=== PATIENT | female | born 1940 | race Caucasian/White ===

== ENCOUNTER → 2017-07-21 | Outpatient (CLI) | END | disposition home or self-care (01) ==

== ENCOUNTER → 2017-12-07 | Outpatient (CLI) | payer MEDICARE ==
[~2017-12-07] MED LIST: ASPI81EC PO; ATOR10; ESTR1; EZET10 PO; ISOMON30 PO; NAPR500 PO; PRED5 PO; [UNRECOGNIZED DRUG - REMARK]
== END | disposition home or self-care (01) ==
LOC: LAB SHORT 16:31 → LAB EV 16:31
DX: N39.0 Urinary tract infection, site not specified (principal)
CPT/HCPCS: 87086

== ENCOUNTER → 2018-04-14 | Outpatient (CLI) | payer MEDICARE ==
[~2018-04-14] MED LIST changes: +ATEN25 PO; +ESTR2 PO; +Omeprazole20 M1; +SPIR25 PO
[2018-04-14 16:19] LABS: BASOPHILS ABSOLUTE AUTO 0.04 K/mm3 (0.00-0.23); BASOPHILS PERCENT AUTO 1 % (0-2); EOSINOPHILS ABSOLUTE AUTO 0.22 K/mm3 (0.00-0.68); EOSINOPHILS PERCENT AUTO 3 % (0-6); Hematocrit 42.1 % (33.0-51.0); Hemoglobin 14.5 g/dL (11.5-16.0); IMMATURE GRAN ABSOLUTE AUTO 0.01 K/mm3 (0.00-0.10); IMMATURE GRAN PERCENT AUTO 0 % (0-1); LYMPHOCYTES ABSOLUTE AUTO 2.88 K/mm3 (0.84-5.20); LYMPHOCYTES PERCENT AUTO 36 % (21-46); MONOCYTES ABSOLUTE AUTO 0.57 K/mm3 (0.16-1.47); MONOCYTES PERCENT AUTO 7 % (4-13); Mean Corpuscular HGB 29.6 pg (26.0-34.0); Mean Corpuscular HGB Conc 34.4 g/dL (31.5-36.5); Mean Corpuscular Volume 86 fL (80-100); Mean Platelet Volume 11.4 fL (9.1-12.4); NEUTROPHILS ABSOLUTE AUTO 4.29 K/mm3 (1.96-9.15); NEUTROPHILS PERCENT AUTO 54 % (41-73); Platelet Count 195 K/mm3 (150-400); RDW Coefficient Variation 14.4 % (11.7-14.2); RDW Standard Deviation 45.2 fL (35.1-46.3); White Blood Cell Count 8.01 K/mm3 (4.00-11.30)
[2018-04-14 16:37] LABS: Alanine Aminotransfer (ALT/SGP 34 U/L (12-78); Albumin, Blood 3.9 g/dL (3.4-5.0); Albumin/Globulin Ratio 1.1 (0.8-1.8); Alk Phos 121 U/L (40-126); Anion Gap 10 mmol/L (6-16); Aspartate Aminotrans (AST/SGOT 26 U/L (12-37); Bilirubin, Total 0.5 mg/dL (0.1-1.0); Blood Urea Nitrogen 15 mg/dL (8-24); Bun/Creatinine Ratio 15.2 (12.0-20.0); CO2, Blood 26 mmol/L (21-32); Calcium, Blood 9.1 mg/dL (8.5-10.1); Chloride, Blood 105 mmol/L (98-108); Creatinine, Blood 0.99 mg/dL (0.40-1.00); Globulin, Blood 3.5 g/dL (2.2-4.0); Glomerular Filtration Rate 55 (60-); Glucose, Blood 76 mg/dL (70-99); Potassium, Blood 3.6 mmol/L (3.5-5.5); Sodium, Blood 141 mmol/L (136-145); Total Protein, Blood 7.4 g/dL (6.4-8.2)
[2018-04-14 16:39] LABS: Troponin I <0.017 ng/mL (0.000-0.040)
== END | disposition home or self-care (01) ==
LOC: LAB EV 16:13 → LAB SHORT 16:13
PROVIDERS: Physician Assistant
DX: R07.9 Chest pain, unspecified (principal)
CPT/HCPCS: 80053; 84484; 85025; 85379

== ENCOUNTER → 2018-08-03 | Outpatient (CLI) | payer MEDICARE | END | disposition home or self-care (01) | LOC: LAB SHORT 14:04 → PLD 14:04 | DX: D22.5 Melanocytic nevi of trunk (principal) | CPT/HCPCS: 88305 ==

== ENCOUNTER → 2018-09-04 | Outpatient (CLI) | payer OTHER | END | disposition home or self-care (01) | LOC: LAB EV 12:20 → LAB SHORT 12:20 | DX: N39.0 Urinary tract infection, site not specified (principal) | CPT/HCPCS: 87086 ==

== ENCOUNTER → 2018-09-16 | Outpatient (CLI) | payer OTHER ==
[2018-09-16 18:54] LABS: Source, Urine Clean Catch
[2018-09-16 19:54] LABS: Bacteria Rare /hpf; Red Blood Cells, Urine 25-50 /hpf (0-2); Squamous Epithelial Cells Rare /hpf (Few)
== END | disposition home or self-care (01) ==
LOC: LAB EV 15:35 → LAB SHORT 15:35
PROVIDERS: Physician Assistant
DX: R30.0 Dysuria (principal); R31.9 Hematuria, unspecified
CPT/HCPCS: 81015

== ENCOUNTER → 2019-02-15 | Outpatient (CLI) | payer MEDICARE ==
[2019-02-15 12:22] LABS: Appearance, Urine Hazy (Clear); Bilirubin, Urine Neg (Neg); Blood, Urine Neg (Neg); Color, Urine Yellow (P-Yellow); Glucose Qualitative, Urine Neg (Normal); Ketones, Urine Neg (Neg); Leukocyte Esterase, Urine Neg (Neg); Nitrite, Urine Neg (Neg); Protein, Urine Neg (Neg); Urobilinogen, Urine NORM (Normal)
[2019-02-15 12:23] LABS: Bacteria Few /hpf; Red Blood Cells, Urine 0-2 /hpf (0-2); Squamous Epithelial Cells Many /hpf (Few); White Blood Cells, Urine 0-2 /hpf (0-5)
[2019-02-15 17:46] LABS: Adenovirus F 40/41 Not Detected (NOT DETECT); Astrovirus Not Detected (NOT DETECT); Campylobacter Sp Not Detected (NOT DETECT); Cryptosporidium Not Detected (NOT DETECT); Cyclospora Cayetanensis Not Detected (NOT DETECT); E. Coli O157 Not Detected (NOT DETECT); Entamoeba Histolytica Not Detected (NOT DETECT); Enteroaggregative E. coli-EAEC Not Detected (NOT DETECT); Enteropathogenic E. coli-EPEC Not Detected (NOT DETECT); Enterotoxigenic E. coli-ETEC Not Detected (NOT DETECT); Giardia Lamblia Not Detected (NOT DETECT); Norovirus GI/GII Not Detected (NOT DETECT); Plesiomonas Shigelloides Not Detected (NOT DETECT); Rotavirus A Not Detected (NOT DETECT); Salmonella Sp Not Detected (NOT DETECT); Sapovirus Not Detected (NOT DETECT); Shiga Toxin-prod E. coli-STEC Not Detected (NOT DETECT); Shigella/Enteroin E. coli-EIEC Not Detected (NOT DETECT); Vibrio Cholerae Not Detected (NOT DETECT); Vibrio Sp Not Detected (NOT DETECT); Yersinia Enterocolitica Not Detected (NOT DETECT)
== END ==
LOC: LAB EV 11:27
PROVIDERS: Physician Assistant
DX: R19.5 Other fecal abnormalities (principal); R10.31 Right lower quadrant pain
CPT/HCPCS: 0097U; 81001

== ENCOUNTER 2019-07-19 10:50 | Inpatient (IN) | payer MEDICARE ==
[~2019-07-19] VITALS: Ht 167.6 cm; Wt 81.9 kg
[~2019-07-19 10:50] MED LIST changes: -ASPI81EC PO; +Aspirin EC81 MG PO; -Omeprazole20 M1; +Omeprazole20 M1 PO
[2019-07-19 11:59] LABS: BASOPHILS ABSOLUTE AUTO 0.05 K/mm3 (0.00-0.23); BASOPHILS PERCENT AUTO 1 % (0-2); EOSINOPHILS ABSOLUTE AUTO 0.23 K/mm3 (0.00-0.68); EOSINOPHILS PERCENT AUTO 2 % (0-6); Hematocrit 40.8 % (33.0-51.0); Hemoglobin 13.7 g/dL (11.5-16.0); IMMATURE GRAN ABSOLUTE AUTO 0.02 K/mm3 (0.00-0.10); IMMATURE GRAN PERCENT AUTO 0 % (0-1); LYMPHOCYTES ABSOLUTE AUTO 3.12 K/mm3 (0.84-5.20); LYMPHOCYTES PERCENT AUTO 30 % (21-46); MONOCYTES ABSOLUTE AUTO 0.54 K/mm3 (0.16-1.47); MONOCYTES PERCENT AUTO 5 % (4-13); Mean Corpuscular HGB 29.7 pg (26.0-34.0); Mean Corpuscular HGB Conc 33.6 g/dL (31.5-36.5); Mean Corpuscular Volume 89 fL (80-100); Mean Platelet Volume 10.5 fL (9.1-12.4); NEUTROPHILS ABSOLUTE AUTO 6.44 K/mm3 (1.96-9.15); NEUTROPHILS PERCENT AUTO 62 % (41-73); Platelet Count 220 K/mm3 (150-400); RDW Coefficient Variation 13.8 % (11.7-14.2); RDW Standard Deviation 44.4 fL (35.1-46.3); Red Blood Cell Count 4.61 M/mm3 (3.80-5.20)
[2019-07-19 12:13] LABS: Anion Gap 9 mmol/L (6-16); Blood Urea Nitrogen 13 mg/dL (8-24); Bun/Creatinine Ratio 14.8 (12.0-20.0); CO2, Blood 21 mmol/L (21-32); Calcium, Blood 8.6 mg/dL (8.5-10.1); Chloride, Blood 109 mmol/L (98-108); Creatinine, Blood 0.88 mg/dL (0.40-1.00); Glomerular Filtration Rate >60 (60-); Glucose, Blood 157 mg/dL (70-99); Potassium, Blood 3.3 mmol/L (3.5-5.5); Sodium, Blood 139 mmol/L (136-145)
[2019-07-19] MEDS ORDERED: ESTRADIOL10 MCG VAG (13:38)
[2019-07-19] MEDS ORDERED: Vitamin D2000 UNIT PO (13:43)
[2019-07-19] MEDS ORDERED: LOSA25 PO (13:43)
[2019-07-19] MEDS ORDERED: EZET10 PO (13:48)
[2019-07-19] MEDS ORDERED: Ranitidine HCl150 M1 PO (16:15)
[2019-07-19] MEDS ORDERED: ASCO500 PO (16:16)
[2019-07-19] MEDS ORDERED: OYSTER SHELL 51 EACH PO (16:17)
[2019-07-20 05:40] LABS: BASOPHILS ABSOLUTE AUTO 0.03 K/mm3 (0.00-0.23); BASOPHILS PERCENT AUTO 0 % (0-2); EOSINOPHILS ABSOLUTE AUTO 0.03 K/mm3 (0.00-0.68); EOSINOPHILS PERCENT AUTO 0 % (0-6); Hematocrit 37.1 % (33.0-51.0); Hemoglobin 12.3 g/dL (11.5-16.0); IMMATURE GRAN ABSOLUTE AUTO 0.03 K/mm3 (0.00-0.10); IMMATURE GRAN PERCENT AUTO 0 % (0-1); LYMPHOCYTES ABSOLUTE AUTO 2.01 K/mm3 (0.84-5.20); LYMPHOCYTES PERCENT AUTO 19 % (21-46); MONOCYTES PERCENT AUTO 8 % (4-13); Mean Corpuscular HGB 29.9 pg (26.0-34.0); Mean Corpuscular HGB Conc 33.2 g/dL (31.5-36.5); Mean Corpuscular Volume 90 fL (80-100); Mean Platelet Volume 11.5 fL (9.1-12.4); NEUTROPHILS ABSOLUTE AUTO 7.54 K/mm3 (1.96-9.15); NEUTROPHILS PERCENT AUTO 72 % (41-73); Platelet Count 180 K/mm3 (150-400); RDW Coefficient Variation 14.1 % (11.7-14.2); RDW Standard Deviation 46.4 fL (35.1-46.3); Red Blood Cell Count 4.11 M/mm3 (3.80-5.20); White Blood Cell Count 10.44 K/mm3 (4.00-11.30)
--- NOTE | 2019-07-20 05:57 | NUR ---
PATIENT'S PAIN IS LESS THIS AM. STATED BETTER CONTROL, EASIER TO GET OOB. RT ARM CON TO BE IN A SLING WITH EVA WRAPP OVER ENTIRE ARM. NO ACUTE CHANGES
[2019-07-20 06:04] LABS: Anion Gap 7 mmol/L (6-16); Blood Urea Nitrogen 16 mg/dL (8-24); Bun/Creatinine Ratio 18.4 (12.0-20.0); CO2, Blood 24 mmol/L (21-32); Calcium, Blood 8.6 mg/dL (8.5-10.1); Chloride, Blood 112 mmol/L (98-108); Creatinine, Blood 0.87 mg/dL (0.40-1.00); Glomerular Filtration Rate >60 (60-); Glucose, Blood 111 mg/dL (70-99); Potassium, Blood 4.2 mmol/L (3.5-5.5); Sodium, Blood 143 mmol/L (136-145)
--- NOTE | 2019-07-20 18:23 | NUR ---
PT ARRIVED BACK TO THE ROOM AT APPROXIMATELY 1740. PT IS ALERT AND ORIENTED. SHE REPORTS PAIN IS MANAGED. SHE IS DROWSY. ABLE TO TOLERATE CLEAR LIQUIDS. R ARM IN SLIN WITH SPLINT AND IMMOBILIZER IN PLACE. VSS. WILL MONITOR UNTIL REPORT TO ONCOMING RN.
--- NOTE | 2019-07-20 18:39 | NUR ---
SHIFT SUMMARY PAIN HAS BEEN MANAGED WITH IV PAIN MEDICATION THIS SHIFT. PT IS DOING WELL POST OP. NO SIGNIFICANT CHANGES TO REPORT.
--- NOTE | 2019-07-21 05:38 | NUR ---
SHIFT SUMMARY HAS RESTED WELL THIS SHIFT. PAIN MANAGED WITH PRM OXYCODONE X2 THIS SHIFT. INCREASED EDEMA NOTED TO ANIRUDH, SLING IN PLACE. PT CAN MOVE FINGERS, HAS FULL SENSATION, GOOD CAP REFILL NOTED, DENIES NUMBNESS OR TINGLING. AMBULATED TO BSC X4 TIMES THIS SHIFT TO URINATE, TOLERATED WELL. HAS NOT HAD A BM YET, BUT IS PASSING FLATUS. IVF CONTINUE TO INFUSE PER MD ORDERS. DENIES FURTHER NEEDS OR WANTS AT THIS TIME. SAFETY MEASURES IN PLACE. WILL GIVE HAND OFF TO ONCOMING SHIFT USING SBAR DURING BEDSIDE REPORT.
[2019-07-21 05:39] LABS: BASOPHILS ABSOLUTE AUTO 0.01 K/mm3 (0.00-0.23); BASOPHILS PERCENT AUTO 0 % (0-2); EOSINOPHILS PERCENT AUTO 0 % (0-6); Hematocrit 36.4 % (33.0-51.0); IMMATURE GRAN ABSOLUTE AUTO 0.04 K/mm3 (0.00-0.10); IMMATURE GRAN PERCENT AUTO 0 % (0-1); LYMPHOCYTES PERCENT AUTO 14 % (21-46); MONOCYTES ABSOLUTE AUTO 0.62 K/mm3 (0.16-1.47); MONOCYTES PERCENT AUTO 6 % (4-13); Mean Corpuscular HGB 29.6 pg (26.0-34.0); Mean Corpuscular Volume 90 fL (80-100); Mean Platelet Volume 10.9 fL (9.1-12.4); NEUTROPHILS ABSOLUTE AUTO 8.96 K/mm3 (1.96-9.15); NEUTROPHILS PERCENT AUTO 80 % (41-73); Platelet Count 176 K/mm3 (150-400); RDW Coefficient Variation 14.2 % (11.7-14.2); RDW Standard Deviation 46.9 fL (35.1-46.3); Red Blood Cell Count 4.05 M/mm3 (3.80-5.20); White Blood Cell Count 11.13 K/mm3 (4.00-11.30)
--- NOTE | 2019-07-21 14:49 | NUR ---
Pt is sitting up in a chair she reports doing fine encouraged her and offered prayers
[2019-07-21] MEDS ORDERED: HYDR1TAB94 PO (15:45)
[2019-07-21] MEDS ORDERED: ACET325 PO (15:45)
[2019-07-21] MEDS ORDERED: ONDA4ODT MM (15:46)
--- NOTE | 2019-07-21 16:05 | NUR ---
DISCHARGE SUMMARY PAIN MANAGED, PT PROVIDED WITH SCRIPT. WRITTEN AND VERBAL DISCHARGE INSTRUCTIONS PROVIDED BY FERNANDO CHANDLER. PT INSTRUCTED TO FOLLOW-UP ON THURSDAY WITH DR. CENTENO.
== END 2019-07-21 16:05 | disposition home or self-care (01) | DRG 563 ==
LOC: ER 10:50 → SURS 10:51
PROVIDERS: Emergency Medicine; Orthopaedic Surgery; Student in an Organized Health Care Education/Training Program; ADMIT Internal Medicine
PROC: 0PSFXZZ Reposition Right Humeral Shaft, External Approach (ICD-10-PCS; principal; 2019-07-20 14:45)
DX: S42.331A Displaced oblique fracture of shaft of humerus, right arm, initial encounter for closed fracture (principal); W19.XXXA Unspecified fall, initial encounter; I12.9 Hypertensive chronic kidney disease with stage 1 through stage 4 chronic kidney disease, or unspecified chronic kidney disease; N18.3 Chronic kidney disease, stage 3 (moderate); E87.6 Hypokalemia; E78.5 Hyperlipidemia, unspecified; M85.80 Other specified disorders of bone density and structure, unspecified site; Z88.5 Allergy status to narcotic agent; Z88.8 Allergy status to other drugs, medicaments and biological substances; Z79.82 Long term (current) use of aspirin
CPT/HCPCS: 24505; 36415; 70450; 72125; 73060; 73206; 80048; 85025; 93005; 93010; 96374-59; 96375-59; 97110; 97116; 97161; 97166; 97535; 99152; 99285-25; A9270-GY; J0330; J1100; J1650; J2250; J2370; J2405; J2704; J2710; J3010; J3480; J7030; J7120; Q9967

== ENCOUNTER → 2020-03-08 | Outpatient (CLI) | payer MEDICARE ==
[~2020-03-08] MED LIST changes: +ACET325 PO; +ASCO500 PO; +ESTRADIOL10 MCG VAG; +HYDR1TAB94 PO; +LOSA25 PO; +ONDA4ODT MM; +OYSTER SHELL 51 EACH PO; +Ranitidine HCl150 M1 PO; +Vitamin D2000 UNIT PO
== END | disposition home or self-care (01) ==
LOC: PLD 14:42 → LAB SHORT 14:42
DX: D09.21 Carcinoma in situ of right eye (principal)
CPT/HCPCS: 88305

== ENCOUNTER → 2021-02-04 | Outpatient (CLI) | payer MEDICARE | END | disposition home or self-care (01) | LOC: LAB SHORT 13:47 | DX: N39.0 Urinary tract infection, site not specified (principal) | CPT/HCPCS: 87077; 87086; 87186 ==

== ENCOUNTER → 2021-12-07 | Outpatient (CLI) | payer MEDICARE | END | disposition home or self-care (01) | LOC: LAB 10:30 → LAB SHORT 10:30 | DX: N39.0 Urinary tract infection, site not specified (principal) | CPT/HCPCS: 87077; 87086; 87186 ==

== ENCOUNTER → 2022-03-30 | Outpatient (CLI) | payer MEDICARE ==
[2022-03-30 12:01] LABS: BASOPHILS ABSOLUTE AUTO 0.03 K/mm3 (0.00-0.23); BASOPHILS PERCENT AUTO 1 % (0-2); EOSINOPHILS PERCENT AUTO 2 % (0-6); Hematocrit 38.3 % (33.0-51.0); Hemoglobin 13.3 g/dL (11.5-16.0); IMMATURE GRAN ABSOLUTE AUTO 0.02 K/mm3 (0.00-0.10); IMMATURE GRAN PERCENT AUTO 0 % (0-1); LYMPHOCYTES PERCENT AUTO 23 % (21-46); MONOCYTES ABSOLUTE AUTO 0.41 K/mm3 (0.16-1.47); MONOCYTES PERCENT AUTO 6 % (4-13); Mean Corpuscular HGB 30.9 pg (26.0-34.0); Mean Corpuscular HGB Conc 34.7 g/dL (31.5-36.5); Mean Corpuscular Volume 89 fL (80-100); Mean Platelet Volume 10.6 fL (9.1-12.4); NEUTROPHILS ABSOLUTE AUTO 4.42 K/mm3 (1.96-9.15); NEUTROPHILS PERCENT AUTO 68 % (41-73); Platelet Count 201 K/mm3 (150-400); RDW Coefficient Variation 13.6 % (11.7-14.2); White Blood Cell Count 6.48 K/mm3 (4.00-11.30)
[2022-03-30 12:23] LABS: Albumin, Blood 4.1 g/dL (3.4-5.0); Albumin/Globulin Ratio 1.3 (0.8-1.8); Bilirubin, Total 0.7 mg/dL (0.1-1.0); Bun/Creatinine Ratio 17.5 (12.0-20.0); Calcium, Blood 9.5 mg/dL (8.5-10.1); Creatinine, Blood 0.97 mg/dL (0.40-1.00); Globulin, Blood 3.2 g/dL (2.2-4.0); Potassium, Blood 4.1 mmol/L (3.5-5.5); Thyroid Stimulating Hormone 1.365 uIU/mL (0.360-4.800); Total Protein, Blood 7.3 g/dL (6.4-8.2)
== END | disposition home or self-care (01) ==
LOC: LAB SHORT 11:57 → LAB 11:57
PROVIDERS: Physician Assistant
DX: R07.9 Chest pain, unspecified (principal); R53.83 Other fatigue
CPT/HCPCS: 80053; 82150; 84443; 84484; 85025; 85379

== ENCOUNTER → 2022-04-11 | Outpatient (CLI) | payer MEDICARE | LOC: LAB SHORT 10:08 | DX: N39.0 Urinary tract infection, site not specified (principal) | CPT/HCPCS: 87077; 87086; 87186 ==

== ENCOUNTER → 2022-12-29 | Outpatient (CLI) | payer MEDICARE | END | disposition home or self-care (01) | LOC: LAB SHORT 18:11 → LAB 18:11 | DX: R60.9 Edema, unspecified (principal) | CPT/HCPCS: 85379 ==

== ENCOUNTER → 2024-03-09 | Outpatient (CLI) | payer MEDICARE ==
[2024-03-09 16:03] LABS: BASOPHILS ABSOLUTE AUTO 0.03 K/mm3 (0.00-0.23); BASOPHILS PERCENT AUTO 0 % (0-2); EOSINOPHILS ABSOLUTE AUTO 0.39 K/mm3 (0.00-0.68); EOSINOPHILS PERCENT AUTO 5 % (0-6); IMMATURE GRAN ABSOLUTE AUTO 0.02 K/mm3 (0.00-0.10); IMMATURE GRAN PERCENT AUTO 0 % (0-1); LYMPHOCYTES ABSOLUTE AUTO 1.94 K/mm3 (0.84-5.20); LYMPHOCYTES PERCENT AUTO 25 % (21-46); MONOCYTES PERCENT AUTO 8 % (4-13); Mean Corpuscular HGB 30.4 pg (26.0-34.0); Mean Corpuscular HGB Conc 34.2 g/dL (31.5-36.5); Mean Corpuscular Volume 89 fL (80-100); Mean Platelet Volume 10.4 fL (9.1-12.4); NEUTROPHILS ABSOLUTE AUTO 4.71 K/mm3 (1.96-9.15); NEUTROPHILS PERCENT AUTO 61 % (41-73); Platelet Count 189 K/mm3 (150-400); RDW Coefficient Variation 14.1 % (11.7-14.2); RDW Standard Deviation 45.1 fL (35.1-46.3); Red Blood Cell Count 4.28 M/mm3 (3.80-5.20); White Blood Cell Count 7.69 K/mm3 (4.00-11.30)
[2024-03-09 16:13] LABS: Albumin, Blood 3.7 g/dL (3.4-5.0); Albumin/Globulin Ratio 1.1 (0.8-1.8); Bilirubin, Total 0.6 mg/dL (0.1-1.0); Bun/Creatinine Ratio 12.6 (12.0-20.0); Calcium, Blood 9.1 mg/dL (8.5-10.1); Creatinine, Blood 0.95 mg/dL (0.40-1.00); Globulin, Blood 3.5 g/dL (2.2-4.0); Potassium, Blood 3.7 mmol/L (3.5-5.5); Total Protein, Blood 7.2 g/dL (6.4-8.2)
== END | disposition home or self-care (01) ==
LOC: LAB 15:57 → LAB SHORT 15:57
PROVIDERS: Chiropractor
DX: R07.81 Pleurodynia (principal)
CPT/HCPCS: 80053; 84484; 85025; 85379

== ENCOUNTER → 2024-08-15 | Outpatient (CLI) | payer MEDICARE ==
[2024-08-15 17:15] LABS: Influenza A, PCR NEGATIVE (NEGATIVE); Influenza B, PCR NEGATIVE (NEGATIVE); Resp Syncytial Virus, PCR NEGATIVE (NEGATIVE); SARS-Cov-2 (COVID-19) PCR, MMC NEGATIVE (NEGATIVE)
== END | disposition home or self-care (01) ==
LOC: LAB SHORT 15:43 → LAB 15:43
PROVIDERS: Physician Assistant Medical
DX: J06.9 Acute upper respiratory infection, unspecified (principal)
CPT/HCPCS: 0241U

== ENCOUNTER → 2024-12-26 | Outpatient (CLI) | payer MEDICARE ==
[~2024-12-26] MED LIST changes: +1/2 NS 250ml250 ML; +B VITAMIN; +D3 VITAMIN; +NEXLETOL180 MG; +PROBIOTIC1 EA14
== END | disposition home or self-care (01) ==
LOC: LAB 10:54 → LAB SHORT 10:54
DX: N39.0 Urinary tract infection, site not specified (principal); M54.50 Low back pain, unspecified
CPT/HCPCS: 87077; 87086; 87186

== ENCOUNTER 2025-01-09 12:02 | Emergency (ER) | payer MEDICARE ==
[~2025-01-09] VITALS: Ht 167.6 cm; Wt 68.0 kg
[2025-01-09 13:44] LABS: BASOPHILS ABSOLUTE AUTO 0.04 K/mm3 (0.00-0.23); BASOPHILS PERCENT AUTO 0 % (0-2); EOSINOPHILS ABSOLUTE AUTO 0.11 K/mm3 (0.00-0.68); EOSINOPHILS PERCENT AUTO 1 % (0-6); Hematocrit 39.2 % (33.0-51.0); Hemoglobin 13.3 g/dL (11.5-16.0); IMMATURE GRAN ABSOLUTE AUTO 0.03 K/mm3 (0.00-0.10); IMMATURE GRAN PERCENT AUTO 0 % (0-1); LYMPHOCYTES ABSOLUTE AUTO 1.36 K/mm3 (0.84-5.20); LYMPHOCYTES PERCENT AUTO 15 % (21-46); MONOCYTES ABSOLUTE AUTO 0.53 K/mm3 (0.16-1.47); MONOCYTES PERCENT AUTO 6 % (4-13); Mean Corpuscular HGB Conc 33.9 g/dL (31.5-36.5); Mean Corpuscular Volume 87 fL (80-100); NEUTROPHILS ABSOLUTE AUTO 7.26 K/mm3 (1.96-9.15); NEUTROPHILS PERCENT AUTO 78 % (41-73); NRBC ABSOLUTE 0.00 K/mm3 (0.00-0.02); NRBC Auto 0.0 /100 WBC (0.0-0.2); Platelet Count 215 K/mm3 (150-400); RDW Coefficient Variation 14.3 % (11.7-14.2); RDW Standard Deviation 45.5 fL (35.1-46.3)
[2025-01-09 14:07] LABS: Alanine Aminotransfer (ALT/SGP 30.0 U/L (12-78); Albumin, Blood 3.9 g/dL (3.4-5.0); Albumin/Globulin Ratio 1.2 (0.8-1.8); Anion Gap 8.0 mmol/L (3-11); Aspartate Aminotrans (AST/SGOT 25.0 U/L (12-37); Bilirubin, Total 1.2 mg/dL (0.1-1.0); Blood Urea Nitrogen 9.0 mg/dL (8-24); CO2, Blood 24.0 mmol/L (21-32); Calcium, Blood 9.6 mg/dL (8.5-10.1); Chloride, Blood 110.0 mmol/L (98-108); Creatinine, Blood 0.74 mg/dL (0.40-1.00); Globulin, Blood 3.3 g/dL (2.2-4.0); Glucose, Blood 101.0 mg/dL (70-99); Potassium, Blood 3.5 mmol/L (3.5-5.5); Sodium, Blood 138.0 mmol/L (136-145); Total Protein, Blood 7.2 g/dL (6.4-8.2)
[2025-01-09] MEDS ORDERED: OxyCODONE 5 mg/Acetamin 325 mg TABLET PO ONE (15:50)
[2025-01-09] MEDS ORDERED: OXYC5 PO (17:07)
[2025-01-09 17:08] VITALS: BP 151/69
== END 2025-01-09 17:21 | disposition home or self-care (01) ==
LOC: ER 12:02
PROVIDERS: Student in an Organized Health Care Education/Training Program
DX: S32.110A Nondisplaced Zone I fracture of sacrum, initial encounter for closed fracture (principal); R60.0 Localized edema; X58.XXXA Exposure to other specified factors, initial encounter; I10 Essential (primary) hypertension; Z90.710 Acquired absence of both cervix and uterus; Z79.2 Long term (current) use of antibiotics; Z79.899 Other long term (current) drug therapy
CPT/HCPCS: 71046; 74177; 80053; 83880; 84484; 85025; 93005; 93010; 99284-25; A9270; Q9967

== ENCOUNTER 2025-01-19 13:23 | Inpatient (IN) | payer MEDICARE ==
[~2025-01-19] VITALS: Ht 167.6 cm; Wt 74.5 kg
[~2025-01-19 13:23] MED LIST changes: -NEXLETOL180 MG; +NEXLETOL180 MG PO; +OXYC5 PO
[2025-01-19] MEDS ORDERED: OXYC10TA19 PO (13:35)
[2025-01-19] MEDS ORDERED: FOSAMAX70 MG PO (13:35)
[2025-01-19] MEDS ORDERED: ESTRADIOL10 MCG VG (13:35)
[2025-01-19] MEDS ORDERED: Ketorolac Tromethamine 15mg Vial IV ONE (14:10)
[2025-01-19] MEDS ORDERED: Methyl Salicylate/Menth/Camph 57 GM TUBE EXT ONE (14:10)
[2025-01-19] MEDS ORDERED: HYDROmorphone HCl/Pf 1MG SYR IV ONE (16:00)
[2025-01-19] MEDS ORDERED: Ondansetron HCl 2 MG / ML 2ML Vial IV ONE (16:40)
[2025-01-20] MEDS ORDERED: HYDROmorphone HCl/Pf 1MG SYR IV ONE ×3 (01:10→06:25)
[2025-01-20] MEDS ORDERED: Ketorolac Tromethamine 30mg Vial IV ONE (06:25)
[2025-01-20] MEDS ORDERED: FLUO10 PO (07:14)
[2025-01-20] MEDS ORDERED: Isosorbide Mono30 MG PO (07:14)
[2025-01-20] MEDS ORDERED: IBUP800 PO (07:16)
[2025-01-20] MEDS ORDERED: HYDROmorphone HCl/Pf 1MG SYR IV PRN (08:50)
[2025-01-20] MEDS ORDERED: Enoxaparin 40 MG/0.4 ML SYR SC SCH (09:00)
[2025-01-20] MEDS ORDERED: Isosorbide Mononitrate 30 MG TABCR PO SCH (09:00)
[2025-01-20 13:36] VITALS: BP 129/66
--- NOTE | 2025-01-20 13:51 | NUR ---
ADMISSION NOTE: ARRIVED TO ROOM 361 VIA GURNEY. REPORT RECIEVED FROM SCARLETT CHANDLER. SLIDE TRANSFER TO BED WITH ASSISTANCE. VSS UPON ADMISSION. REPORTS MILD PAIN. ORIENTED TO ROOM AND SURROUNDINGS. CALL LT WITHIN REACH. BED LOCKED AND IN THE LOWEST POSITION.
[2025-01-20] MEDS ORDERED: ESTRADIOL10 MCG PO (16:12)
--- NOTE | 2025-01-20 17:51 | NUR ---
SHIFT SUMMARY: A&OX4, BUT IS NULATO. PLEASANT AND COOPERATIVE WITH CARE. COMPLAINTS OF PAIN AND MEDICATED PER EMAR. IV PATENT. PT IS NOT GOTTEN OUT OF BED SINCE ADMISSION. REPORTS OF ONGOING WEAKNESS. LYING IN BED AT THIS TIME. BED LOCKED AND IN THE LOWEST POSITION, BREATHING EQUAL AND NONLABORED. CALL LT WITHIN REACH.
[2025-01-20 19:37] VITALS: BP 143/72
--- NOTE | 2025-01-20 23:01 | NUR ---
CALL TO PIPE JEEPER PHYSICIAN PER PT REQUEST FOR TUMS DUE TO H/O ACID REFLUX. TELEPHONE ORDER RECEIVED AND ORDER INPUT.
[2025-01-21] MEDS ORDERED: Magnesium Hydroxide Conc 10 ML UDC PO PRN (03:50)
[2025-01-21 03:56] VITALS: BP 164/66
[2025-01-21 04:36] LABS: BASOPHILS ABSOLUTE AUTO 0.02 K/mm3 (0.00-0.23); BASOPHILS PERCENT AUTO 0 % (0-2); EOSINOPHILS ABSOLUTE AUTO 0.23 K/mm3 (0.00-0.68); EOSINOPHILS PERCENT AUTO 3 % (0-6); Hematocrit 33.4 % (33.0-51.0); Hemoglobin 11.4 g/dL (11.5-16.0); IMMATURE GRAN ABSOLUTE AUTO 0.02 K/mm3 (0.00-0.10); IMMATURE GRAN PERCENT AUTO 0 % (0-1); LYMPHOCYTES ABSOLUTE AUTO 1.19 K/mm3 (0.84-5.20); LYMPHOCYTES PERCENT AUTO 16 % (21-46); MONOCYTES ABSOLUTE AUTO 0.46 K/mm3 (0.16-1.47); MONOCYTES PERCENT AUTO 6 % (4-13); Mean Corpuscular HGB Conc 34.1 g/dL (31.5-36.5); Mean Corpuscular Volume 87 fL (80-100); NEUTROPHILS ABSOLUTE AUTO 5.37 K/mm3 (1.96-9.15); NEUTROPHILS PERCENT AUTO 74 % (41-73); NRBC ABSOLUTE 0.00 K/mm3 (0.00-0.02); NRBC Auto 0.0 /100 WBC (0.0-0.2); Platelet Count 248 K/mm3 (150-400); RDW Coefficient Variation 14.3 % (11.7-14.2); RDW Standard Deviation 45.6 fL (35.1-46.3)
[2025-01-21 05:06] LABS: Anion Gap 8.0 mmol/L (3-11); Blood Urea Nitrogen 15.0 mg/dL (8-24); CO2, Blood 26.0 mmol/L (21-32); Calcium, Blood 8.2 mg/dL (8.5-10.1); Chloride, Blood 107.0 mmol/L (98-108); Creatinine, Blood 0.7 mg/dL (0.40-1.00); Glucose, Blood 88.0 mg/dL (70-99); Potassium, Blood 3.4 mmol/L (3.5-5.5); Sodium, Blood 138.0 mmol/L (136-145)
--- NOTE | 2025-01-21 05:20 | NUR ---
SHIFT SUMMARY A&OX4. ABLE TO MAKE ALL NEEDS KNOWN. INTERMITTEMENT PAIN THROUGHOUT SHIFT. WARM BLANKETS HELP AND PT MEDICATED PER EMAR. THERE WAS NO URINE DURING SHIFT IN PUREWICK. LOWER ABD PALPATED AND WAS FIRM AND TENDER. PT BLADDER SCANNED AND IT SHOWED >500 MLS. WARM WET WASHCLOTH APPLIED TO STIMULATE URINATION WITH PT APPROVAL WITH GOOD RESULTS. PT WAS ABLE TO VOID MOST URINE IN BLADDER. POST BLADDER SCAN 111 MLS. PUREWICK REPLACED AND PT EDUCATED TO CALL IF NEED TO URINATE OCCURS AGAIN AND PT IS UNABLE. SHE V/U. PT ALSO STATES SHE HAS NOT HAD A BM FOR MULTIPLE DAYS. PROVIDER CALLED AND BOWEL CARE INIATED PER ORDERS. PT IS CURRENTLY SLEEPING IN HER BED AT THE LOWEST POSITION, WITH RAILS X2 AND CALL LIGHT WITHIN REACH.
[2025-01-21 07:28] VITALS: BP 169/79
[2025-01-21] MEDS ORDERED: Docusate Sodium/Senna 1 Tab PO SCH (07:30)
--- NOTE | 2025-01-21 12:50 | NUR ---
ASSUMED CARE VSS VERY PLEASNT PT A/O X 4, CURRENTLY NO C/O PAIN SHOWS NO DISTRESS AND IS QUIETLY LAYING IN BED, CALL LIGHT WITHIN REACH.
[2025-01-21] MEDS ORDERED: Ondansetron 4 MG SoluTab SL PRN (13:05)
[2025-01-21 15:39] VITALS: BP 143/63
--- NOTE | 2025-01-21 19:16 | NUR ---
NO CHANGE IN CONDITION PT EDU GIVEN REGARDING PO MEDS VS IV MEDICATION. PT WILL TRY TO TAKE PO UNLESS SEVERE PAIN IS NOT CONTROLLED. BOWEL CARE ALSO DONE UNSUCCESSFULLY TODAY AND WILL CONT THIS EVENING. CALL LIGHT WITHIN REACH.
[2025-01-21 20:12] VITALS: BP 173/84
[2025-01-22 04:25] VITALS: BP 146/66
[2025-01-22 04:51] LABS: BASOPHILS ABSOLUTE AUTO 0.05 K/mm3 (0.00-0.23); BASOPHILS PERCENT AUTO 1 % (0-2); EOSINOPHILS ABSOLUTE AUTO 0.18 K/mm3 (0.00-0.68); EOSINOPHILS PERCENT AUTO 3 % (0-6); Hematocrit 34.2 % (33.0-51.0); Hemoglobin 11.4 g/dL (11.5-16.0); IMMATURE GRAN ABSOLUTE AUTO 0.02 K/mm3 (0.00-0.10); IMMATURE GRAN PERCENT AUTO 0 % (0-1); LYMPHOCYTES ABSOLUTE AUTO 1.34 K/mm3 (0.84-5.20); LYMPHOCYTES PERCENT AUTO 20 % (21-46); MONOCYTES ABSOLUTE AUTO 0.52 K/mm3 (0.16-1.47); MONOCYTES PERCENT AUTO 8 % (4-13); Mean Corpuscular HGB Conc 33.3 g/dL (31.5-36.5); Mean Corpuscular Volume 87 fL (80-100); NEUTROPHILS ABSOLUTE AUTO 4.70 K/mm3 (1.96-9.15); NEUTROPHILS PERCENT AUTO 69 % (41-73); NRBC ABSOLUTE 0.00 K/mm3 (0.00-0.02); NRBC Auto 0.0 /100 WBC (0.0-0.2); Platelet Count 264 K/mm3 (150-400); RDW Coefficient Variation 13.9 % (11.7-14.2); RDW Standard Deviation 43.8 fL (35.1-46.3)
[2025-01-22 05:13] LABS: Anion Gap 8.0 mmol/L (3-11); Blood Urea Nitrogen 11.0 mg/dL (8-24); CO2, Blood 26.0 mmol/L (21-32); Calcium, Blood 8.8 mg/dL (8.5-10.1); Chloride, Blood 106.0 mmol/L (98-108); Creatinine, Blood 0.69 mg/dL (0.40-1.00); Glucose, Blood 94.0 mg/dL (70-99); Potassium, Blood 4.1 mmol/L (3.5-5.5); Sodium, Blood 136.0 mmol/L (136-145)
--- NOTE | 2025-01-22 06:30 | NUR ---
SHIFT SUMMARY A&OX4. ABLE TO MAKE ALL NEEDS KNOWN. EDUCATED ON PAIN MANAGEMENT WITH POSITIONING AND ASSISTED PT TO REPOSITION FOR COMFORT. PT HAD PAIN EXACERBATION DURING SHIFT AND WAS MEDICATED PER EMAR WITH GOOD RESULTS PT WAS ABLE TO FALL BACK TO SLEPP AND APPEARED TO HAVE RESTED COMFORTABLY. PUREWICK IN PLACE IS WORKING WELL. PT CURRENTLY RESTING IN BED AT LOWEST POSITION WITH CALL LIGHT WITHIN REACH.
[2025-01-22 07:22] VITALS: BP 158/65
--- NOTE | 2025-01-22 09:42 | NUR ---
ASSUMED CARE A/O X 4 CURRENTLY PAIN FREE WHEN NOT MOVING. IS APPROPRIATE AND MAKES NEEDS KNOWN, SPOKE WITH PT ABOUT PAIN MANAGEMENT AND THE NEED TO CONT BEING MOBILE IN A SAAFE MANNER. PT HAS BEEN ENC TO CONT TO TAKE MEDICATION AND TO LEAN TOWARD ORAL INSTEAD OF IV AND TO LEAVE IV UNTIL ABSOLUTLY NECESSARY. PT AGREED.
--- NOTE | 2025-01-22 11:01 | NUR ---
Call back - Pt sitting up in bed and appeared well taken care of. Provided space for patient to discuss her life, yen, and family. Pt enjoys researching her geneology. 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 Pt would like to receive Holy Communion, but it is not urgent. Communicated with pt I would attempt contact with Father Jeffery and/or Father Esperanza and it might be Thursday or Thursday before they are able to visit. She thanked curriculum writer for the the visit and welcomed future door machine operator support. Contacted Father Jeffery and left a request for him, providing all pertinent information.
--- NOTE | 2025-01-22 15:06 | NUR ---
assited pt out of bed pt was able to stand and walk in place using fww, jose well with minimal pain.
[2025-01-22 15:07] VITALS: BP 151/68
[2025-01-22 20:32] VITALS: BP 173/78
--- NOTE | 2025-01-23 05:27 | NUR ---
SHIFT SUMMARY: PT AOX4, 1PA TO THE BSC. CALLS APPROPRIATELY AND ABLE TO MAKE NEEDS KNOWN. WAS ABLE TO GET ON THE BSC AND HAVE A BM. EXCRUCIATING PAIN DURING, MEDICATED PER EMR. AFTERWARDS, PT SLEPT WELL IN BED ALL NIGHT WITHOUT COMPLAINTS. PT TOLERATING MEDICATIONS WELL. NO ACUTE OVERNIGHT EVENTS. PT IN BED RESTING, BED IN LOWEST POSITION, CALL LIGHT IN REACH. CONTINUING CARE.
[2025-01-23 05:55] VITALS: BP 152/79
[2025-01-23 06:53] LABS: BASOPHILS ABSOLUTE AUTO 0.05 K/mm3 (0.00-0.23); BASOPHILS PERCENT AUTO 1 % (0-2); EOSINOPHILS ABSOLUTE AUTO 0.27 K/mm3 (0.00-0.68); EOSINOPHILS PERCENT AUTO 4 % (0-6); Hematocrit 36.6 % (33.0-51.0); Hemoglobin 12.3 g/dL (11.5-16.0); IMMATURE GRAN ABSOLUTE AUTO 0.02 K/mm3 (0.00-0.10); IMMATURE GRAN PERCENT AUTO 0 % (0-1); LYMPHOCYTES ABSOLUTE AUTO 1.44 K/mm3 (0.84-5.20); LYMPHOCYTES PERCENT AUTO 21 % (21-46); MONOCYTES ABSOLUTE AUTO 0.61 K/mm3 (0.16-1.47); MONOCYTES PERCENT AUTO 9 % (4-13); Mean Corpuscular HGB Conc 33.6 g/dL (31.5-36.5); Mean Corpuscular Volume 87 fL (80-100); NEUTROPHILS ABSOLUTE AUTO 4.63 K/mm3 (1.96-9.15); NEUTROPHILS PERCENT AUTO 66 % (41-73); NRBC ABSOLUTE 0.00 K/mm3 (0.00-0.02); NRBC Auto 0.0 /100 WBC (0.0-0.2); Platelet Count 268 K/mm3 (150-400); RDW Coefficient Variation 14.3 % (11.7-14.2); RDW Standard Deviation 45.3 fL (35.1-46.3)
[2025-01-23 07:26] LABS: Anion Gap 8.0 mmol/L (3-11); Blood Urea Nitrogen 11.0 mg/dL (8-24); CO2, Blood 26.0 mmol/L (21-32); Calcium, Blood 8.6 mg/dL (8.5-10.1); Chloride, Blood 107.0 mmol/L (98-108); Creatinine, Blood 0.74 mg/dL (0.40-1.00); Glucose, Blood 92.0 mg/dL (70-99); Potassium, Blood 4.2 mmol/L (3.5-5.5); Sodium, Blood 137.0 mmol/L (136-145)
[2025-01-23 07:41] VITALS: BP 157/75
--- NOTE | 2025-01-23 11:35 | NUR ---
ASSUMED CARE OF PT A/O X 4 CALLS APPROPRIATLY, ATTEMPTED TO ASSIST PT OUT OF BED TO COMMODE BUT PAIN WAS TOO SEVERE. PT WAS ASSISTED BACK TO BED AND MEDICATED PER MAR. ADDITIONAL MEDCATION STARTED FOR PAIN. [facility] [employer] ABLE TO WORK WITH PT, PT PAIN BETTER MANAGED AND WAS ABLE TO HAVE BM. CALL LIGHT WITHIN REACH MAKES NEEDS KNOWN.
[2025-01-23 16:17] VITALS: BP 148/72
[2025-01-23 19:41] VITALS: BP 145/79
[2025-01-24 03:30] VITALS: BP 151/74
--- NOTE | 2025-01-24 04:44 | NUR ---
SHIFT SUMMARY: PT AOX4, CALLS APPROPRIATELY AND ABLE TO MAKE NEEDS KNOWN. COMPLAINTS OF PAIN MEDICATED PER EMR. NO ACUTE EVENTS OVERNIGHT. TOLERATING MEDICATIONS WELL, VERY PLEASANT. PT IN BED SLEEPING, BED IN LOWEST POSITION, CALL LIGHT IN REACH. CONTINUING CARE.
[2025-01-24 08:10] VITALS: BP 174/80
--- NOTE | 2025-01-24 09:39 | NUR ---
pt laying in bed awake a/ox4, pleasant and cooperative with care, follows commands well, is very painful in sacrum area, lungs are clear t/o, resp even and unlabored, no cough noted, on r/a, hrr, no edema noted, ppp+2, cap refill<3 sec, vs stable, afebrile, piv to rfa site is clear and patent, btx4, abd flat soft nontender, voids without diff, skin c/w/d, maew, luciano, call light in reach.
--- NOTE | 2025-01-24 14:59 | NUR ---
Pt left via wheelchair transport to [facility], her piv was removed intact, has all her belongings, attempted a number of times to call report to [facility], was given to the admissions person, and told she needs to verify transport, and hung up. after waiting a few minutes called back and was put to voice mail, and on hold.
== END 2025-01-24 14:45 | DRG 544 ==
LOC: ER 13:23 → ERHOLD 13:24 → MEDS 01-20 13:36 → ENPENDDIS 01-24 11:59 → MEDS 01-24 14:45
PROVIDERS: ADMIT Internal Medicine
DX: M48.58XA Collapsed vertebra, not elsewhere classified, sacral and sacrococcygeal region, initial encounter for fracture (principal); E78.00 Pure hypercholesterolemia, unspecified; I12.9 Hypertensive chronic kidney disease with stage 1 through stage 4 chronic kidney disease, or unspecified chronic kidney disease; N18.30 Chronic kidney disease, stage 3 unspecified; K21.9 Gastro-esophageal reflux disease without esophagitis; E78.5 Hyperlipidemia, unspecified; I25.10 Atherosclerotic heart disease of native coronary artery without angina pectoris; G25.2 Other specified forms of tremor; R11.0 Nausea; Z90.710 Acquired absence of both cervix and uterus; Z98.890 Other specified postprocedural states; Z79.1 Long term (current) use of non-steroidal anti-inflammatories (NSAID); Z88.5 Allergy status to narcotic agent; Z88.8 Allergy status to other drugs, medicaments and biological substances; Z79.891 Long term (current) use of opiate analgesic; Z79.899 Other long term (current) drug therapy
CPT/HCPCS: 36415; 80048; 85025; 96372; 96374; 96375; 96376; 97110; 97116; 97162; 97165; 97530; 97535; 99284-25; A6590; A9270; G0378; J1171; J1650; J1885; J2405